=== PATIENT | male | born 1950 | race African-American/Black ===

== ENCOUNTER 2021-08-07 09:14 | Emergency (ER) | payer OTHER, MEDICARE ==
[~2021-08-07] VITALS: Ht 167.6 cm; Wt 70.8 kg
[2021-08-07] MEDS ORDERED: CEFUROXIME250 MG PO (10:54)
[2021-08-07 11:26] VITALS: BP 133/78
[2021-08-07] MEDS ORDERED: LEVOFLOXACIN 500 MG TAB PO ONE (11:30)
== END 2021-08-07 11:26 | disposition home or self-care (01) ==
LOC: FSED 09:25
DX: N99.820 Postprocedural hemorrhage of a genitourinary system organ or structure following a genitourinary system procedure (principal); R33.9 Retention of urine, unspecified; R31.9 Hematuria, unspecified; N40.1 Benign prostatic hyperplasia with lower urinary tract symptoms; I10 Essential (primary) hypertension; J44.9 Chronic obstructive pulmonary disease, unspecified; E78.5 Hyperlipidemia, unspecified; Z87.891 Personal history of nicotine dependence
CPT/HCPCS: 51700; 80048; 81003; 85025; 87086; 99283

== ENCOUNTER 2021-08-08 14:24 | Emergency (ER) | payer MEDICARE, OTHER ==
[~2021-08-08] VITALS: Ht 167.6 cm; Wt 70.8 kg
[~2021-08-08 14:24] MED LIST: CEFUROXIME250 MG PO
[2021-08-08] MEDS ORDERED: LIDOCAINE JELLY 2% 10ML URO-JET TOP ONE (15:00)
== END 2021-08-08 17:20 | disposition home or self-care (01) ==
LOC: ER 14:30
DX: N99.821 Postprocedural hemorrhage of a genitourinary system organ or structure following other procedure (principal); R33.9 Retention of urine, unspecified; I10 Essential (primary) hypertension; J44.9 Chronic obstructive pulmonary disease, unspecified
CPT/HCPCS: 51700; 99283